=== PATIENT | male | born 1970 | race Caucasian/White ===

== ENCOUNTER 2019-10-03 17:22 | Observation (INO) ==
[2019-10-03] MEDS ORDERED: 0.9 % Sodium Chloride 1,000 ML IVC ONE (18:13)
[2019-10-03 18:24] LABS: VBG HCO3 23 mEq/L (21-27); VBG PCO2 34 mmHg (41-51); VBG PH 7.44 pH Units (7.32-7.42); VBG PO2 52 mmHg (25-50)
[2019-10-03 18:26] LABS: Hematocrit 47.8 % (37.5-50.1); Hemoglobin 15.7 g/dL (12.9-16.9); Mean Corpuscular HGB Conc 32.8 g/dL (31.6-35.5); Mean Corpuscular Hemoglobin 26.8 pg (28.0-33.3); Mean Corpuscular Volume 81.7 fL (83.0-100.0); Mean Platelet Volume 10.1 fL (9.4-12.4); Platelet Count 169 K/mcL (140-400); Red Blood Count 5.85 M/mcL (4.19-5.50); Red Cell Distribution Width 13.8 % (11.5-14.5); White Blood Count 8.6 K/mcL (4.3-11.1)
[2019-10-03] MEDS ORDERED: Isovue-370 500 ML BOTTLE IVP ONE (18:45)
[2019-10-03 18:49] LABS: Alanine Aminotransferase 19 Units/L (7-52); Albumin 4.1 g/dL (3.5-5.7); Albumin/Globulin Ratio 1.5 (1.1-2.2); Alkaline Phosphatase 68 Units/L (34-104); Aspartate Amino Transferase 13 Units/L (13-39); BUN/Creatinine Ratio 16 (6-26); Bilirubin,Total 0.9 mg/dL (0.3-1.0); Blood Urea Nitrogen 18 mg/dL (6-20); Calcium 9.3 mg/dL (8.6-10.3); Carbon Dioxide 22 mEq/L (23-29); Chloride 104 mEq/L (98-107); Globulin 2.7 g/dL (2.4-3.5); Glucose 197 mg/dL (70-105); Osmolality,Calculated 283 (280-300); Potassium 3.9 mEq/L (3.5-5.1); Sodium 133 mEq/L (136-145); Total Protein 6.8 g/dL (6.4-8.9); Troponin I < 0.03 ng/mL (< 0.04); eGFR For African Americans > 60 (> 60); eGFR For Non-African Americans > 60 (> 60)
[2019-10-03 19:14] LABS: Bilirubin,Urine Small (Negative); Blood,Urine Large (Negative); Clarity,Urine Cloudy (Clear); Glucose,Urine (UA) 100 mg/dL (Normal); Ketones,Urine Trace mg/dL (Negative); Leukocyte Esterase,Urine Large (Negative); Nitrite,Urine Positive (Negative); PH,Urine 5.5 pH Units (5.0-8.0); Protein,Urine >=300 mg/dL (Neg-Trace); Specific Gravity,Urine > 1.030 (1.010-1.025); Urobilinogen,Urine Normal (Normal)
[2019-10-03 19:16] LABS: Bacteria,Urine Many per hpf (None-Few); Hyaline Casts,Urine None Seen per lpf (None-Few); RBC,Urine 15-30 per hpf (0-3); Squamous Epithelial Cell,Urine None Seen per lpf (None-Few); WBC,Urine TNTC per hpf (0-3)
[2019-10-03 19:19] LABS: Color,Urine Dark Yellow (Yellow)
[2019-10-03] MEDS ORDERED: cefTRIAXone 1,000 MG in Water for inj. (sterile) 10 ML IVP ONE (20:58)
[2019-10-03] MEDS ORDERED: cefTRIAXone 1,000 MG in 0.9 % Sodium Chloride Mini Bag 100 ML IVPB ONE (22:07)
[2019-10-03] MEDS ORDERED: Naloxone 0.4 MG/ML INJ IVP PRN ×2 (22:13→22:20)
[2019-10-03] MEDS ORDERED: Ipratropium/Albuterol Neb 3 ML IH PRN (22:20)
[2019-10-03] MEDS ORDERED: D5% in Water 1,000 ML IVC PRN (22:21)
[2019-10-03] MEDS ORDERED: Dextrose Gel 15 GM/37.5 ML TUBE PO PRN ×2 (22:21)
[2019-10-03] MEDS ORDERED: *HR* Dextrose 50 % in Water (Syg) 50 ML SYRINGE IVP PRN (22:21)
[2019-10-03] MEDS: Insulin LISPRO 300 UNITS/3 ML VIAL SQ SCH (23:07)
[2019-10-04] MEDS: Insulin LISPRO 300 UNITS/3 ML VIAL SQ SCH ×4 (00:02→18:20)
[2019-10-04 04:55] LABS: Basophils % 0.4 %; Eosinophils # 0.1 K/mcL (0.0-0.6); Hematocrit 43.1 % (37.5-50.1); Hemoglobin 14.3 g/dL (12.9-16.9); Immature Granulocytes % 0.3 % (0-4); Lymphocytes # 1.2 K/mcL (0.6-4.6); Lymphocytes % 18.1 %; Mean Corpuscular HGB Conc 33.2 g/dL (31.6-35.5); Mean Corpuscular Hemoglobin 27.3 pg (28.0-33.3); Mean Corpuscular Volume 82.4 fL (83.0-100.0); Mean Platelet Volume 9.9 fL (9.4-12.4); Monocytes # 0.7 K/mcL (0.0-1.3); Neutrophils # 4.7 K/mcL (1.6-8.9); Platelet Count 139 K/mcL (140-400); Red Blood Count 5.23 M/mcL (4.19-5.50); Segmented Neutrophils % 69.2 %; White Blood Count 6.7 K/mcL (4.3-11.1)
[2019-10-04 04:58] LABS: INR 1.3; Prothrombin Time 14.7 Seconds (9.4-12.1)
[2019-10-04 05:16] LABS: BUN/Creatinine Ratio 19 (6-26); Blood Urea Nitrogen 14 mg/dL (6-20); Calcium 8.7 mg/dL (8.6-10.3); Carbon Dioxide 22 mEq/L (23-29); Chloride 109 mEq/L (98-107); Glucose 96 mg/dL (70-105); Magnesium 2.2 mg/dL (1.6-2.6); Osmolality,Calculated 286 (280-300); Phosphorous 2.9 mg/dL (2.7-4.5); Potassium 3.5 mEq/L (3.5-5.1); Sodium 138 mEq/L (136-145); eGFR For African Americans > 60 (> 60); eGFR For Non-African Americans > 60 (> 60)
[2019-10-04] MEDS: *HR* Heparin 5,000 UNIT/ML VIAL SQ SCH ×2 (05:29→18:28)
[2019-10-04 08:23] LABS: Estimated Average Glucose 183 mg/dl
[2019-10-04] MEDS: hydroCHLOROthiazide 25 MG TABLET PO SCH (08:48)
[2019-10-04] MEDS: Finasteride 5 MG TABLET PO SCH (08:48)
[2019-10-04] MEDS: cefTRIAXone 2,000 MG in Water for inj. (sterile) 10 ML IVP SCH (20:19)
[2019-10-04] MEDS ORDERED: Insulin LISPRO 300 UNITS/3 ML VIAL SQ SCH (21:00)
[2019-10-05 05:16] LABS: Basophils % 0.3 %; Eosinophils # 0.1 K/mcL (0.0-0.6); Hematocrit 44.4 % (37.5-50.1); Hemoglobin 14.8 g/dL (12.9-16.9); Immature Granulocytes % 0.3 % (0-4); Lymphocytes # 1.4 K/mcL (0.6-4.6); Lymphocytes % 19.2 %; Mean Corpuscular HGB Conc 33.3 g/dL (31.6-35.5); Mean Corpuscular Hemoglobin 27.3 pg (28.0-33.3); Mean Corpuscular Volume 81.8 fL (83.0-100.0); Mean Platelet Volume 9.9 fL (9.4-12.4); Monocytes # 0.8 K/mcL (0.0-1.3); Monocytes % 10.8 %; Neutrophils # 4.9 K/mcL (1.6-8.9); Platelet Count 170 K/mcL (140-400); Red Blood Count 5.43 M/mcL (4.19-5.50); Red Cell Distribution Width 13.9 % (11.5-14.5); Segmented Neutrophils % 68.4 %; White Blood Count 7.1 K/mcL (4.3-11.1)
[2019-10-05 05:28] LABS: BUN/Creatinine Ratio 22 (6-26); Blood Urea Nitrogen 16 mg/dL (6-20); Calcium 8.8 mg/dL (8.6-10.3); Carbon Dioxide 23 mEq/L (23-29); Chloride 105 mEq/L (98-107); Glucose 135 mg/dL (70-105); Osmolality,Calculated 285 (280-300); Potassium 3.4 mEq/L (3.5-5.1); Sodium 136 mEq/L (136-145); eGFR For African Americans > 60 (> 60); eGFR For Non-African Americans > 60 (> 60)
[2019-10-05] MEDS: *HR* Heparin 5,000 UNIT/ML VIAL SQ SCH (05:41)
[2019-10-05] MEDS: Insulin LISPRO 300 UNITS/3 ML VIAL SQ SCH ×2 (08:00→11:54)
[2019-10-05] MEDS: Finasteride 5 MG TABLET PO SCH (09:16)
[2019-10-05] MEDS: cefTRIAXone 2,000 MG in Water for inj. (sterile) 10 ML IVP SCH (09:17)
[2019-10-05] MEDS: hydroCHLOROthiazide 25 MG TABLET PO SCH (09:17)
[2019-10-05 10:41] VITALS: BP 122/81
== END 2019-10-05 16:09 | disposition home or self-care (01) ==
LOC: EMEROOARM 17:22 → 3ANU 17:22 → SUATTDRO 21:44 → 3ANU 22:22
PROVIDERS: ADMIT Student in an Organized Health Care Education/Training Program; ATTEND Internal Medicine